=== PATIENT | female | born 1965 | race Caucasian/White ===

== ENCOUNTER 2018-12-23 23:04 | Emergency (ER) | payer OTHER ==
[2018-12-23] MEDS ORDERED: TETANUS/DIPHTHERIA TOXOID [ADULT] 0.5 ML VIAL IM ONE (23:27)
[2018-12-24] MEDS ORDERED: HYDROCODONE/ACETAMINOPHEN 5/325 MG TAB ONE (00:39)
== END 2018-12-24 01:12 | disposition home or self-care (01) ==
LOC: EDH 23:04
DX: T25.222A Burn of second degree of left foot, initial encounter (principal); T25.132A Burn of first degree of left toe(s) (nail), initial encounter; T31.0 Burns involving less than 10% of body surface; Z98.890 Other specified postprocedural states; X11.8XXA Contact with other hot tap-water, initial encounter; Y93.G3 Activity, cooking and baking; Y92.009 Unspecified place in unspecified non-institutional (private) residence as the place of occurrence of the external cause; Y99.8 Other external cause status
CPT/HCPCS: 73630; 90471; 90714

== ENCOUNTER → 2019-05-24 | Outpatient (CLI) | payer OTHER | END | disposition home or self-care (01) | LOC: RAH 13:04 | PROVIDERS: ATTEND Physician Assistant Medical | DX: N63.10 Unspecified lump in the right breast, unspecified quadrant (principal); N63.12 Unspecified lump in the right breast, upper inner quadrant; N63.23 Unspecified lump in the left breast, lower outer quadrant; N60.02 Solitary cyst of left breast; N60.01 Solitary cyst of right breast; N64.89 Other specified disorders of breast | CPT/HCPCS: 76641; 77066 ==

== ENCOUNTER → 2023-04-21 | Outpatient (CLI) | payer OTHER | END | disposition home or self-care (01) | LOC: RAH 12:46 | PROVIDERS: ATTEND Obstetrics & Gynecology | DX: N60.01 Solitary cyst of right breast (principal); N64.4 Mastodynia; N63.21 Unspecified lump in the left breast, upper outer quadrant | CPT/HCPCS: 76641; 77066 ==

== ENCOUNTER → 2024-09-06 | Outpatient (CLI) | payer OTHER ==
--- NOTE | 2024-09-06 20:16 | HMCIMG ---
US BREAST BILATERAL REASON: DIFFUSE CYSTIC BREAST. COMPARISON: 04/21/2023 TECHNIQUE: Bilateral breast ultrasound study was performed. FINDINGS: There is right breast nodule at 12:00 measuring 2 x 0.8 x 1.4 cm. There is left breast nodule at 3:00 measuring 2 x 0.8 x 1.8 cm. These were biopsied previously and stable in appearance. There is interval development of subareolar cyst measuring 6 mm. IMPRESSION: Findings as described above. CATEGORY 2: BENIGN FINDINGS Recommend monthly self breast exam as well as annual clinical examination.
== END | disposition home or self-care (01) ==
LOC: RAH 09:20
PROVIDERS: ATTEND Physician Assistant Medical
DX: N63.25 Unspecified lump in the left breast, overlapping quadrants (principal); N63.15 Unspecified lump in the right breast, overlapping quadrants; N60.02 Solitary cyst of left breast; N60.01 Solitary cyst of right breast